=== PATIENT | male | born 1995 | race Caucasian/White ===

== ENCOUNTER 2017-05-25 16:33 | Emergency (ER) | payer BC ==
[2017-05-25 18:09] VITALS: BP 133/59
[2017-05-25] MEDS ORDERED: Triamcinolone Acetonide* 40 MG/ML 1 ML VIAL IM ONE (18:18)
--- NOTE | 2017-05-25 18:18 | UC ---
Skin Complaint HPI - HPI Summary HPI Summary: itchy rash dorsum of feet x days worsening some bulla has been in flip flops a lot no pain - History of Current Complaint Chief Complaint: UCSkin Time Seen by Provider: 05/25/17 18:09 Stated Complaint: SKIN COMPLAINT Hx Obtained From: Patient Onset/Duration: Gradual Onset, Lasting Days Timing: Constant Onset Severity: Mild Current Severity: Mild Pain Intensity: 1 Pain Scale Used: 0-10 Numeric Location: Foot (Right), Foot (Left) Character: Pruritus, Redness, Raised Aggravating: Other - wearing boots Alleviating: Other - calomine lotion Associated Signs & Symptoms: Positive: Rash - Allergy/Home Medications Allergies/Adverse Reactions: Allergies Allergy/AdvReac Type Severity Reaction Status Date / Time No Known Allergies Allergy Verified 05/25/17 18:09 Review of Systems Constitutional: Negative Skin: Rash Eyes: Negative ENT: Negative Respiratory: Negative Cardiovascular: Negative Gastrointestinal: Negative Genitourinary: Negative Motor: Negative Neurovascular: Negative Musculoskeletal: Negative Neurological: Negative Psychological: Negative All Other Systems Reviewed And Are Negative: Yes PMH/Surg Hx/FS Hx/Imm Hx Previously Healthy: Yes - Surgical History Surgical History: Yes Surgery Procedure, Year, and Place: "blockage in intestine as a baby" - Family History Known Family History: Negative: Cardiac Disease, Hypertension, Diabetes - Social History Alcohol Use: Occasionally Substance Use Type: None Smoking Status (MU): Former Smoker - Immunization History Most Recent Tetanus Shot: Age 13 yrs Physical Exam Triage Information Reviewed: Yes Appearance: Well-Appearing, No Pain Distress, Well-Nourished Vital Signs: Initial Vital Signs Temp 98.3 F 05/25/17 18:05 Pulse 65 05/25/17 18:05 Resp 16 05/25/17 18:05 BP 133/59 05/25/17 18:05 Pulse Ox 100 05/25/17 18:05 Vital Signs Reviewed: Yes Eyes: Positive: Conjunctiva Clear ENT: Positive: Hearing grossly normal. Negative: Nasal congestion, Nasal drainage, Trismus, Muffled/hoarse voice Neck: Positive: Supple, Nontender Respiratory: Positive: Lungs clear, Normal breath sounds, No respiratory distress, No accessory muscle use Cardiovascular: Positive: RRR, No Murmur Neurological: Positive: Alert Psychological Exam: Normal Skin Exam: Other - see image Course/Dx - Diagnoses Provider Diagnoses: contact dermatitis Discharge - Discharge Plan Condition: Stable Disposition: HOME Patient Education Materials: Contact Dermatitis (ED) Referrals: Mayelin To [Primary Care Provider] - 1 Week (if not markely improved your BP was at the prehypertensive level and should be checked at next visit ) Additional Instructions: epsom salt soaks of both feet 2-3 x day until better benadryl 2 25 mg at bedtime if needed for itching you had a cortisone shot here recheck for concerns of infection or in not showing some improvement in a few days Images Feet (Multiple View): 1 - rash c/w contact derm/redness/papules/bullae. no tinea pedis
== END 2017-05-25 18:50 | disposition home or self-care (01) ==
LOC: UCCORT 16:33
DX: L25.9 Unspecified contact dermatitis, unspecified cause (principal); Z87.891 Personal history of nicotine dependence
CPT/HCPCS: 96372; 99211; G0463; J3301

== ENCOUNTER 2018-07-20 16:52 | Emergency (ER) | payer BC, OTHER ==
[2018-07-20 17:17] VITALS: BP 143/65
--- NOTE | 2018-07-20 18:03 | UC ---
HPI BURN - HPI Summary HPI Summary: 23 year old male presents with burn to left upper arm. States he accidentally touched a hot exhaust pipe. Denies pain. - History of Current Complaint Chief Complaint: UCBurn Stated Complaint: BURN ON LEFT ARM - W/C Time Seen by Provider: 07/20/18 17:54 Hx Obtained From: Patient Occurred: Hours Ago Length of Exposure: Seconds Onset Severity: Mild Current Severity: None Pain Intensity: 0 Location: LUE Character: Direct Thermal Contact, Blisters: Intact Aggravating Factor(s): Nothing Alleviating Factor(s): Nothing Associated Signs & Symptoms: Positive: Negative Occupational Injury: Yes - Allergy/Home Medications Allergies/Adverse Reactions: Allergies Allergy/AdvReac Type Severity Reaction Status Date / Time No Known Allergies Allergy Verified 05/25/17 18:09 PMH/Surg Hx/FS Hx/Imm Hx - Additional Past Medical History Additional PMH: Noncontributory Previously Healthy: Yes - Surgical History Surgical History: Yes Surgery Procedure, Year, and Place: "blockage in intestine as a baby" - Family History Known Family History: Negative: Cardiac Disease, Hypertension, Diabetes - Social History Occupation: Employed Full-time Lives: With Family Alcohol Use: Occasionally Substance Use Type: None Smoking Status (MU): Former Smoker - Immunization History Most Recent Tetanus Shot: 9 YEARS AGO Review of Systems Constitutional: Negative Skin: Other - See HPI Motor: Negative Neurovascular: Negative Musculoskeletal: Negative Is Patient Immunocompromised?: No All Other Systems Reviewed And Are Negative: Yes Physical Exam Triage Information Reviewed: Yes Appearance: Well-Appearing, No Pain Distress, Well-Nourished Vital Signs: Initial Vital Signs Temp 98.2 F 07/20/18 17:13 Pulse 62 07/20/18 17:13 Resp 16 07/20/18 17:13 BP 143/65 07/20/18 17:13 Pulse Ox 100 07/20/18 17:13 Respiratory: Positive: No respiratory distress Cardiovascular: Positive: Pulses Normal, Brisk Capillary Refill Musculoskeletal Exam: Normal Neurological: Positive: Alert Skin: Positive: significant lesion(s) - 2nd degree oval-shaped burn 4 cm x 2.5 cm with intact blister left upper arm. See diagram. Images Front/Back of Body, Lg ([place]): 1 - 2nd degree oval-shaped burn 4 cm x 2.5 cm with intact blister Burn Calculation - [place] Formula for Fluid Resuscitation Weight: 83.915 kg 24 -Hour Fluid Replacement: 0.0 Course/Dx Burn - Course Course Of Treatment: 23 year old male presents with 2nd degree burn to left upper arm after coming into contact with hot exhaust pipe. Intact blist. Wound dressed. Discussed wound care with patient. Verbalizes understanding. - Differential Dx - Burn Differential Diagnoses: Direct Contact Thermal Burn - Diagnoses Clinic Provider Diagnoses: 2nd degree burn left upper arm Discharge - Sign-Out/Discharge Documenting (check all that apply): Patient Departure All imaging exams completed and their final reports reviewed: No Studies - Discharge Plan Condition: Stable Disposition: HOME Patient Education Materials: Second Degree Burn (ED) Referrals: Mayelin To [Primary Care Provider] - 7 Days (Wound recheck.) Additional Instructions: Apply bacitracin ointment to the affected area twice a day and cover with a non- stick bandage until fully healed. Leave the blister intact - do not try to open it as this could increase your risk of infection. If blister opens, be sure to keep the wound covered to avoid getting it dirty. Use an over the counter pain medication such as acetaminophen (Tylenol) or ibuprofen (Advil, Motrin) as needed for pain. Follow up with your primary care provider in 7 days for wound check. Watch for signs of infection including fever greater than 100.5 F, increased pain that is not managed with pain medication, redness that spreads, increased swelling, or red streaks up the arm. Seek immediate medical attention should any of these occur. - Billing Disposition and Condition Condition: STABLE Disposition: Home
== END 2018-07-20 18:22 | disposition home or self-care (01) ==
LOC: UCCORT 16:52
DX: T22.232A Burn of second degree of left upper arm, initial encounter (principal); T31.0 Burns involving less than 10% of body surface; X19.XXXA Contact with other heat and hot substances, initial encounter; Y93.9 Activity, unspecified; Y92.9 Unspecified place or not applicable; Y99.0 Civilian activity done for income or pay; Z87.891 Personal history of nicotine dependence
CPT/HCPCS: 16020; 99212; G0463